=== PATIENT | female | born 1995 | race Caucasian/White ===

== ENCOUNTER 2016-10-26 16:28 | Emergency (ER) | payer BC ==
[~2016-10-26] VITALS: Ht 167.6 cm; Wt 78.3 kg
[~2016-10-26 16:28] MED LIST: BCP; CITA20TA12; GNT.3OO351 OS
--- OUTSIDE RECORDS SUMMARY | 2016-10-26 16:33 | XMS REPORT | Summary of Care ---
Author Author Janelle Luque Organization Unknown Address [address] [place] [place] [id number] Phone Unavailable Care Team Providers Care Machine Compositor Name Role Phone Janelle Luque Unavailable Unavailable Johnnie Zazueta M.D. Unavailable Unavailable Brenton Barahona Unavailable Unavailable Unavailable Unavailable Functional Status Name Dates Details Functional status health issues are not documented Status: Name Dates Details Cognitive status health issues are not documented Status: Problems Name Dates Details Acne (706.1, L70.9) Status: Active Infection of skin of toes (686.9, L08.9) Status: Active Broken toes (826.0, S92.919A) Status: Active Medications Name Dates Details Aczone 5 % External Gel APPLY SPARINGLY TO AFFECTED AREAS EVERY NIGHT Quantity: 90 Refills: 2 Gilberto Zazueta M.D. Start 11-Jun-2014 Active Tretinoin 0.05 % External Cream APPLY SPARINGLY TO AFFECTED AREA(S) ALTERNATING WITH ACZONE AT BEDTIME. Quantity: 1 Refills: 2 Gilberto Zazueta M.D. Start 20-Sep-2014 Active 45 GM Tube Sulfamethoxazole-Trimethoprim 800-160 MG Oral Tablet 1 PO BID for 7 days Quantity: 14 Refills: 0 Janelle Luque Start 08-Aug-2016 Active Allergies and Adverse Reactions Name Dates Details No Known Drug Allergies (Allergy) Status: Active Procedures Procedure Dates Details Procedures not documented Immunization Name Dates Details Immunizations not documented Social History Name Dates Details - Status: Name Dates Details Unknown if ever smoked Vital Signs Date Test Result Details 08-Aug-2016 16:51 BP Systolic 116 mm[Hg] Status: Comments: Location: LUE; Position: BP Diastolic 76 mm[Hg] Status: Comments: Location: LUE; Position: Temperature 98.6 f Status: Comments: Method: Tympanic Heart Rate 75 /min Status: Comments: Location: ; Physical Findings 100 Status: Comments: O2 Saturation Results Date Description Value Details Results not documented Plan of Care Name Dates Details Planned Observations Planned Goals not documented Interventions Provided Medication ChangesSulfamethoxazole-Trimethoprim 800-160 MG Oral Tablet - Start Instructions Name Dates Details Instructions not documented Encounters Appointment; Gilberto Zazueta M.D. Encounter Diagnosis: Problem not documented On 25-May-2015 08:30 Appointment; Gilberto Zazueta M.D. Encounter Diagnosis: Problem not documented On 11:15 Appointment; Gilberto Zazueta M.D. Encounter Diagnosis: Problem not documented On 20-Sep-2014 11:30
[2016-10-26] MEDS ORDERED: CEPH500C PO (17:30)
[2016-10-26] MEDS ORDERED: LIDOCAINE/EPINEPHRINE 1%-1:100,000 (XYLOCAINE) 20ML VIAL TOP ONE (17:30)
[2016-10-26] MEDS ORDERED: LIDOCAINE/EPINEPHRINE 1% 1:100,000 (XYLOCAINE) 30 ML VIAL INJ ONE (17:45)
--- NOTE | 2016-10-26 18:00 | NUR ---
Patient expelled small red tissue in toilet approx. [address] Jara notified.
[2016-10-26] MEDS ORDERED: LIDOCAINE 1% (XYLOCAINE) 20 ML VIAL ONE (18:04)
[2016-10-26] MEDS ORDERED: LIDOCAINE 1% (XYLOCAINE) 20 ML VIAL INJ ONE (18:05)
[2016-10-26] MEDS ORDERED: SULF1TAB35 PO (18:20)
[2016-10-26] MEDS ORDERED: HYDR-3702 PO (18:20)
[2016-10-26 19:09] VITALS: BP 117/77
== END 2016-10-26 18:30 | disposition home or self-care (01) ==
LOC: ED 16:30
DX: N76.4 Abscess of vulva (principal)
CPT/HCPCS: 56405; 87070; 87075; 99283